=== PATIENT | male | born 1935 | race Caucasian/White ===

== ENCOUNTER → 2018-05-10 | Outpatient (CLI) | payer OTHER, BC ==
[~2018-05-10] MED LIST: ALEVE220 M1 PO; ASPIRIN EC81 M1 PO; CYCLOBENZAPRINE5 MG PO; FISH OIL 1,001000 M1 PO; FOLIC ACID 40400 MC1 PO; HYDROCODONE-AP1 EAC6 PO; LIPITOR80 MG PO; LOPRESSOR50 PO; LOSARTAN-HCTZ1 EAC2 PO; MILK THISTLE500 MG PO; NORVASC5 MG PO; PREDNISONE 20 M20 MG PO; PRILOSEC 20 MG20 MG PO; SENNA-DOCUSATE1 EAC1 PO; VITAMIN B-1100 M2 PO; XANAX 0.5 MG0.5 MG PO
== END ==
LOC: HYPER 05-04 10:26
DX: L97.822 Non-pressure chronic ulcer of other part of left lower leg with fat layer exposed (principal); I25.10 Atherosclerotic heart disease of native coronary artery without angina pectoris; I87.2 Venous insufficiency (chronic) (peripheral); I10 Essential (primary) hypertension; E78.00 Pure hypercholesterolemia, unspecified; K21.9 Gastro-esophageal reflux disease without esophagitis; M19.90 Unspecified osteoarthritis, unspecified site; F10.10 Alcohol abuse, uncomplicated

== ENCOUNTER 2018-05-26 16:02 | Inpatient (IN) | payer OTHER, BC ==
[~2018-05-26] VITALS: Ht 182.9 cm; Wt 113.4 kg
--- NOTE | ~2018-05-26 | HC ---
[facility] [place] [address] CONSULTATION Name: EDDA LOPES CHRISTIAN Room #: 432-P [facility] M.R.#: [id number] Admission: 05/26/18 Attend Phys: Michelle Reno Discharge: 05/29/18 Date of : 35 Report #: [id number] THIS REPORT FOR: //name// CC: Michelle Garcia DATE OF SERVICE: 05/28/2018 CHIEF COMPLAINT: Ulceration to the right lower extremity. HISTORY OF PRESENT ILLNESS: This is an 83-year-old male patient who is known to the wound care service from an initial outpatient visit on the 9 of this month. The patient has a traumatic wound to the right lower extremity with apparent underlying venous insufficiency, was admitted to the hospital with bilateral hip pain and rib pain following a fall. He normally ambulates at home with a walker, but has had some weakness following the fall. The patient denies any pain in his leg at this time. PAST MEDICAL HISTORY: History of gout, thrombocytosis, asthma, hypertension, previous rotator cuff repair, reflux esophagitis, previous cervical fracture following fall, history of hypercholesterolemia, coronary artery disease, has a history of alcohol use with 2-3 mixed drinks per day, history of prostate cancer, previous laparoscopic cholecystectomy. SOCIAL HISTORY: The patient drinks 2 to 3 mixed drinks daily. Denies tobacco use. FAMILY HISTORY: Noncontributory. MEDICATIONS: Lopressor, Norvasc, Xanax, losartan, Prilosec. ALLERGIES: SHELLFISH. REVIEW OF SYSTEMS: CONSTITUTIONAL: The patient denies fever, chills or weight loss. NEUROLOGICAL: The patient denies focal weakness. He does have some generalized weakness. ENT: The patient denies earache, nasal drainage, sore throat. CARDIOVASCULAR: The patient denies chest pain, palpitations or diaphoresis. PULMONARY: The patient denies cough or shortness of breath. GASTROINTESTINAL: The patient denies nausea, vomiting or abdominal pain. ORTHOPEDIC: The patient is aware of the ulceration in his right lower extremity. Other systems in a 14-point review of systems are reviewed and negative. [facility] [address] [place] [address] CONSULTATION Name: EDDA LOPES Room #: 432-P REPLACED BY [facility].#: [id number] Admission: 05/26/18 Attend Phys: Michelle Reno Discharge: 05/29/18 Date of : 35 Report #: [id number] PHYSICAL EXAMINATION: VITAL SIGNS: At this time include pulse rate 97, respiratory rate of 18, blood pressure of 134/69, temperature 98.6. GENERAL: This is a chronically ill-appearing male patient who appears to be in minimal distress. HEENT: Head: Normocephalic. Nose and throat are clear. NECK: Shows diminished range of motion. HEART: Regular rhythm without murmur. LUNGS: Clear to auscultation. ABDOMEN: Soft and nontender. EXTREMITIES: Examination of the lower extremities demonstrates 2+ edema bilaterally. He has palpable, but diminished distal pulses. He has a circular oval-shaped ulceration on the right lateral lower leg. It is clean and healthy and granulating, actually appears improved from the photographs seen in the outpatient wound care chart. NEUROLOGIC: The patient is alert, moves all 4 extremities spontaneously. LABORATORY DATA: Sodium 143, potassium 3.7, chloride 106, CO2 29, BUN 17, creatinine 1.1, glucose 99, calcium is 8.5, phosphorus 3.0, albumin 2.7. White blood cell count 13.7 with a hemoglobin of 14.3. CLINICAL IMPRESSION: 1. Traumatic wound versus venous ulceration, right lateral lower leg. 2. Venous stasis dermatitis. 3. Peripheral arterial disease by screening QuantaFlo study. RECOMMENDATIONS: At this point in time, we will recommend topical antibiotic ointment and Xeroform gauze followed by dry gauze and daily. I think it would be worthwhile to check an arterial Doppler, as he has significantly abnormal QuantaFlo on the left side. Continue with aggressive physical therapy. Continue current medications. I appreciate being asked to see the patient in consultation. <ELECTRONICALLY SIGNED> By: Khris Taylor MD 06/01/18 [id number] Khris Taylor MD /nt
[~2018-05-26 16:02] MED LIST changes: -CYCLOBENZAPRINE5 MG PO; -FOLIC ACID 40400 MC1 PO; -HYDROCODONE-AP1 EAC6 PO; -LOPRESSOR50 PO; -NORVASC5 MG PO; -PREDNISONE 20 M20 MG PO; -SENNA-DOCUSATE1 EAC1 PO; -VITAMIN B-1100 M2 PO; -XANAX 0.5 MG0.5 MG PO
[2018-05-26 16:03] VITALS: BP 142/76
[2018-05-26 16:34] LABS: URINE BILIRUBIN NEGATIVE (Negative); URINE BLOOD TRACE (Negative); URINE CLARITY CLEAR; URINE COLOR YELLOW; URINE GLUCOSE-RANDOM* NEGATIVE (Negative); URINE KETONES TRACE (Negative); URINE LEUKOCYTES-REFLEX NEGATIVE (Negative); URINE NITRITE-REFLEX NEGATIVE (Negative); URINE PROTEIN (DIPSTICK) NEGATIVE (Negative); URINE UROBILINOGEN 0.2 E.U./dl (0.2-1.0)
[2018-05-26] MEDS ORDERED: LOPRESSOR50 PO (16:45)
[2018-05-26] MEDS ORDERED: NORVASC5 MG PO (16:46)
[2018-05-26] MEDS ORDERED: XANAX 0.5 MG0.5 MG PO (16:46)
[2018-05-26 16:49] LABS: ABSOLUTE NEUTROPHILS 11.4 thou/uL (1.4-8.2); BASOPHILS 0.9 % (0.0-2.0); EOSINOPHILS 0.5 % (0.0-3.0); HEMATOCRIT 41.6 % (42.0-52.0); HEMOGLOBIN 14.3 gm/dL (14.0-18.0); LYMPHOCYTES 6.8 % (24.0-44.0); MCH 33.5 pg (26.0-34.0); MCHC 34.3 g/dL (28.0-37.0); MCV 97.7 fL (80.0-100.0); MONOCYTES 8.4 % (1.0-8.0); PLATELET COUNT 291 thou/uL (150-400); POLYS 83.4 % (36.0-66.0); RBC 4.26 mil/uL (4.50-6.00); RDW 14.2 % (10.5-14.5); WBC 13.7 thou/uL (4.0-11.0)
[2018-05-26 16:57] LABS: CALCIUM 9.2 mg/dL (8.5-10.1); CREATININE 1.5 mg/dL (0.7-1.3); POTASSIUM 3.8 mmol/L (3.5-5.1)
[2018-05-26 18:15] VITALS: BP 138/70
[2018-05-26 19:04] VITALS: BP 148/78
[2018-05-26 21:27] VITALS: BP 151/70
[2018-05-27 04:12] VITALS: BP 144/74
[2018-05-27 06:46] LABS: ALBUMIN 2.6 g/dL (3.4-5.0); CALCIUM 8.1 mg/dL (8.5-10.1); CREATININE 1.2 mg/dL (0.7-1.3); PHOSPHORUS 3.2 mg/dL (2.5-4.9); POTASSIUM 3.2 mmol/L (3.5-5.1)
[2018-05-27 08:00] VITALS: BP 144/78
[2018-05-27 16:51] VITALS: BP 132/103
[2018-05-27 21:18] VITALS: BP 143/73
[2018-05-28 05:34] VITALS: BP 136/67
[2018-05-28 06:37] LABS: ALBUMIN 2.7 g/dL (3.4-5.0); CALCIUM 8.5 mg/dL (8.5-10.1); CREATININE 1.1 mg/dL (0.7-1.3); POTASSIUM 3.7 mmol/L (3.5-5.1)
[2018-05-28 08:33] VITALS: BP 154/69
[2018-05-28 09:25] VITALS: BP 154/69
[2018-05-28 15:26] VITALS: BP 154/69
[2018-05-28 16:57] VITALS: BP 142/82
[2018-05-28 19:48] VITALS: BP 149/90; BP 149/990
[2018-05-29 00:12] VITALS: BP 156/86
[2018-05-29 03:46] VITALS: BP 148/85
[2018-05-29 08:23] VITALS: BP 132/90
[2018-05-29 08:35] VITALS: BP 142/69
[2018-05-29] MEDS ORDERED: ALEVE220 M1 PO (09:41)
[2018-05-29] MEDS ORDERED: CYCLOBENZAPRINE5 MG PO (09:41)
[2018-05-29] MEDS ORDERED: VITAMIN B-1100 M2 PO (09:42)
[2018-05-29] MEDS ORDERED: FOLIC ACID 40400 MC1 PO (09:42)
[2018-05-29] MEDS ORDERED: XANAX 0.5 MG0.5 MG PO (09:42)
[2018-05-29] MEDS ORDERED: HYDROCODONE-AP1 EAC6 PO (09:42)
[2018-05-29] MEDS ORDERED: PREDNISONE 20 M20 MG PO (09:43)
[2018-05-29] MEDS ORDERED: SENNA-DOCUSATE1 EAC1 PO (09:43)
== END 2018-05-29 16:23 | DRG 682 ==
LOC: ER 16:02 → EROBS 18:03 → 4E 18:03
PROVIDERS: Hospitalist; Physician Assistant
DX: N17.9 Acute kidney failure, unspecified (principal); E43 Unspecified severe protein-calorie malnutrition; M62.82 Rhabdomyolysis; L97.919 Non-pressure chronic ulcer of unspecified part of right lower leg with unspecified severity; M48.061 Spinal stenosis, lumbar region without neurogenic claudication; M10.9 Gout, unspecified; J45.909 Unspecified asthma, uncomplicated; I10 Essential (primary) hypertension; E78.00 Pure hypercholesterolemia, unspecified; I87.2 Venous insufficiency (chronic) (peripheral); I73.9 Peripheral vascular disease, unspecified; E86.0 Dehydration; Z95.5 Presence of coronary angioplasty implant and graft; Z85.46 Personal history of malignant neoplasm of prostate; Z91.013 Allergy to seafood; Z90.49 Acquired absence of other specified parts of digestive tract; Z72.89 Other problems related to lifestyle; W01.0XXA Fall on same level from slipping, tripping and stumbling without subsequent striking against object, initial encounter; Y93.89 Activity, other specified; Y92.89 Other specified places as the place of occurrence of the external cause; Y99.8 Other external cause status; Z79.82 Long term (current) use of aspirin; Z79.899 Other long term (current) drug therapy
CPT/HCPCS: 10084

== ENCOUNTER → 2019-01-06 | Outpatient (CLI) | payer OTHER, BC ==
[~2019-01-06] MED LIST changes: +CYCLOBENZAPRINE5 MG PO; +FOLIC ACID 40400 MC1 PO; +HYDROCODONE-AP1 EAC6 PO; +LOPRESSOR50 PO; +NORVASC5 MG PO; +PREDNISONE 20 M20 MG PO; +SENNA-DOCUSATE1 EAC1 PO; +VITAMIN B-1100 M2 PO; +XANAX 0.5 MG0.5 MG PO
== END ==
LOC: HYPER 01-05 15:16
DX: L97.822 Non-pressure chronic ulcer of other part of left lower leg with fat layer exposed (principal); I87.2 Venous insufficiency (chronic) (peripheral); I25.10 Atherosclerotic heart disease of native coronary artery without angina pectoris; I10 Essential (primary) hypertension; E78.00 Pure hypercholesterolemia, unspecified; K21.9 Gastro-esophageal reflux disease without esophagitis; M19.90 Unspecified osteoarthritis, unspecified site; F10.10 Alcohol abuse, uncomplicated; Z90.49 Acquired absence of other specified parts of digestive tract

== ENCOUNTER → 2019-01-25 | Outpatient (CLI) | payer OTHER, BC | LOC: HYPER 07:19 | DX: L97.822 Non-pressure chronic ulcer of other part of left lower leg with fat layer exposed (principal); I25.10 Atherosclerotic heart disease of native coronary artery without angina pectoris; I87.2 Venous insufficiency (chronic) (peripheral); E78.00 Pure hypercholesterolemia, unspecified; I10 Essential (primary) hypertension; M19.90 Unspecified osteoarthritis, unspecified site; K21.9 Gastro-esophageal reflux disease without esophagitis; F10.10 Alcohol abuse, uncomplicated ==